=== PATIENT | male | born 1955 | race Caucasian/White ===

== ENCOUNTER 2019-03-21 10:03 | Emergency (ER) | payer BC ==
[~2019-03-21] VITALS: Ht 167.6 cm; Wt 74.8 kg
[~2019-03-21 10:03] MED LIST: DUTA0.5C PO; PARO40TA61 PO; TAMS0.4C97 PO
[2019-03-21] MEDS ORDERED: IV NORMAL SALINE 1,000ML 1,000 ML IV ONE ×2 (10:30→12:30)
--- NOTE | 2019-03-21 10:43 | PHYS DOC ---
Past History Past Medical History: Anxiety, High Cholesterol Additional Past Medical Histor: Prostate "issues" Past Surgical History: No Surgical History Smoking: Greater than 1 pack/day Alcohol Use: None Drug Use: None Adult General Chief Complaint Chief Complaint: MECHANICAL FALL HPI HPI 63-year-old male presents with report of fall from height off of ladder while trying to get on his roof. Patient reports the ladder just "slipped". Patient reports he tried to catch himself on the gutter and physical he fell landing on his right side. Patient reports considerable pain to right shoulder and right chest. Denies head trauma or loss of consciousness. Patient does report use of aspirin daily. [id number] picked up patient and brought by private vehicle. Denies laceration. Reports pain with deep inspiration. Reports deformity to right shoulder. Review of Systems Review of Systems Constitutional: Denies fever or chills Eyes: Denies redness or eye pain HENT: Denies nasal congestion or sore throat or epistaxis Respiratory: Denies cough; reports shortness of breath Cardiovascular: Reports right chest pain; denies palpitations GI: Denies abdominal pain, nausea, or vomiting : Denies dysuria or hematuria Musculoskeletal: Reports right shoulder pain Integument: Denies rash or skin lesions Neurologic: Denies headache, focal weakness or sensory changes Complete systems were reviewed and found to be within normal limits, except as documented in this note. Current Medications Current Medications Current Medications Medications (Trade) Dose Ordered Sig/Kris Start Time Stop Time Status Last Admin Dose Admin Fentanyl Citrate (Fentanyl 2ml Vial) 75 mcg 1X ONCE 03/21/19 10:30 03/21/19 10:31 DC 03/21/19 10:25 75 MCG Iohexol (Omnipaque 300 Mg/ml) 75 ml 1X ONCE 03/21/19 11:00 03/21/19 11:01 Sodium Chloride 1,000 ml @ 1,000 mls/hr 1X ONCE 03/21/19 10:30 03/21/19 11:29 03/21/19 10:30 1,000 MLS/HR Allergies Allergies Allergies Coded Allergies Type Severity Reaction Last Updated Verified No Known Drug Allergies 03/21/19 No Physical Exam Physical Exam Constitutional: Well developed, well nourished, uncomfortable, non-toxic appearance HENT: Normocephalic, atraumatic, oropharynx moist, TMs clear, nose normal, no Perez sign Eyes: PERRL, EOMI, conjunctiva normal, no discharge Neck: Normal range of motion, no midline tenderness, supple Cardiovascular: Heart rate normal, regular rhythm Lungs & Thorax: Bilateral breath sounds diminished on right, lateral chest wall discomfort with palpation Abdomen: Soft, no tenderness, pelvis stable and nontender Skin: Warm, dry, no erythema, no rash, left anterior tibial contusion Back: No midline tenderness, no CVA tenderness Extremities: Right shoulder deformity noted with decreased range of motion, distal sensation intact, right radial pulse +2 Neurologic: Alert and oriented X 3, normal motor function, normal sensory function, no focal deficits noted Psychologic: Affect normal, judgement normal Current Patient Data Vital Signs Vital Signs Date Time Temp Pulse Resp B/P (MAP) Pulse Ox O2 Delivery O2 Flow Rate FiO2 03/21/19 10:25 18 Room Air 03/21/19 10:20 97.2 62 96 EKG EKG [] Radiology/Procedures Radiology/Procedures PROCEDURE: SHOULDER 2+V RIGHT Examination: SHOULDER 2+V RIGHT History: Pain, fall Comparison/Correlation: None Findings: 2 view right shoulder x-ray examination was performed. Anterior dislocation of the right humeral head is evident. Acromioclavicular relationship is normal. No displaced fracture identified. Right apical pneumothorax is present. The lung apex is at the third posterior rib shadow level. Impression: Anterior dislocation of the right humeral head. Small right pneumothorax. Discussed with Dr. Avery of the emergency Department on 03/21/2019 at 11:08 AM. Electronically signed by: Ousmane Basurto MD (03/21/2019 11:09 AM) [facility] PROCEDURE: CHEST AP ONLY CHEST AP ONLY Clinical Indication: Pain, fall Comparison: None. Findings: Upright frontal view of the chest was obtained. The cardiomediastinal silhouette is normal. Lungs are clear. Pneumothorax is not well delineated on this exam. No pleural effusion is appreciated. Anterior dislocation of the right humeral head is noted. Elevation of right hemidiaphragm is present. Soft tissue gas involving the right lower lateral chest douglass evident extending to the upper abdomen. IMPRESSION: Right-sided pneumothorax is not well depicted on chest x-ray; although it is seen on shoulder x-ray exam performed. Soft tissue gas in the right lateral chest wall. Anterior dislocation of the right humeral head. Electronically signed by: Ousmane Basurto MD (03/21/2019 11:09 AM) [facility] PROCEDURE: CT CHEST ABD PELVIS W/CONTRAST Indication: Right lateral chest and flank pain after a fall from roof today Technique: Postcontrast CT imaging was performed of chest abdomen and pelvis, multiplanar reconstruction images submitted. No oral contrast was given. One or more of the following individualized dose reduction techniques were utilized for this examination: 1. Automated exposure control 2. Adjustment of the mA and/or kV according to patient size 3. Use of iterative reconstruction technique Comparison: None CHEST: Findings: There is moderate size right pneumothorax. There is gas in the right lateral chest wall. There is nondisplaced right lateral fifth rib fracture, slightly displaced right lateral sixth rib fracture which is fractured in 2 separate locations, and somewhat displaced right lateral seventh rib fracture. Thoracic vertebral body stature and AP alignment are maintained. There is multilevel thoracic and lumbar degenerative disc disease. There is mild dependent atelectasis right lower lobe. There is probable trace right hemothorax. There is a thin-walled air cyst of the right middle lobe. There is no pericardial fluid. Thoracic aortic caliber is within normal limits without dissection flap. There are some calcified mediastinal and left hilar nodes. There is right anterior shoulder dislocation. IMPRESSION: 1. There is moderate size right pneumothorax, also gas in the right chest wall. There is probable trace right hemothorax dependently. There are right rib fractures as stated. There is right anterior shoulder dislocation. Abdomen pelvis FINDINGS: Both kidneys enhance, no hydronephrosis. There are 4 hypodense foci of the left kidney, density characteristics of larger foci suggestive of cysts. There is 2.2 cm hypodense lesion of the right kidney with density measurements suggestive of cyst. There is no perinephric fluid collection on either side. There is no adrenal nodularity. Gallbladder is present without obvious intraluminal abnormality by CT. No focal abnormality is identified of the liver, spleen, pancreas. Accurate evaluation of bowel is limited without oral contrast. Bowel is not dilated. There is no free air or significant free fluid. Normal appendix is visualized. There is multilevel lumbar degenerative disc disease. Lumbar vertebral body stature is maintained. There is mild posterior subluxation of what is considered L3 relative L4 and L4 relative L5 and L5 relative S1. There is multilevel facet degenerative change. There is likely gas containing extrusion extending below the L2-3 intervertebral disc space in the left lateral recess. There is also likely gas containing extrusion in the right lateral recess below the L4-5 intervertebral disc space level. There is also likely small gas containing extrusion extending below the L1-2 intervertebral disc space in the left lateral recess. There is likely moderate to severe spinal stenosis at L3-4, variable other lateral recess stenosis. There is multilevel variable lumbar neural foramina compromise greatest bilaterally at L5-S1, on the left at L3-4, to a somewhat lesser degree at L4-5 bilaterally. Abdominal aortic caliber is within normal limits, minimal plaque. IMPRESSION: 1. No acute abnormality is identified of the abdomen or pelvis. 2. There are bilateral renal cysts. 3. There is multilevel thoracolumbar degenerative disc disease. There is some variable multilevel lumbar neural foramina compromise. There are likely some gas containing extrusions as stated. There is likely moderate to severe spinal stenosis L3-4. There is multilevel lumbar neural foramina compromise. Findings discussed with LOYD AVERY at 03/21/2019 11:37 AM. FOR INTERNAL CODING PURPOSES RESULT CODE: (C) Electronically signed by: Gavino Cristobal MD (03/21/2019 11:40 AM) [id number] PROCEDURE: CT HEAD AND CERVICAL SPINE WO STUDY: 1. CT head without contrast 2. CT cervical spine without contrast INDICATION: Fall off a roof. COMPARISON: None. TECHNIQUE: Axial CT imaging through the head and cervical spine without the use of intravenous contrast. Sagittal and coronal reformats were obtained. One or more of the following individualized dose reduction techniques were utilized for this examination: 1. Automated exposure control 2. Adjustment of the mA and/or kV according to patient size 3. Use of iterative reconstruction technique. FINDINGS: CT head: No acute intracranial hemorrhage. No mass effect, midline shift or hydrocephalus. Licona-white matter differentiation is maintained. Small rounded focus of low-attenuation subjacent to the left lentiform nucleus, image 11 series 2, most compatible with a dilated perivascular space given location. The calvarium is intact. No layering fluid seen within the visualized paranasal sinuses nor within the mastoid air cells or middle ears. CT cervical spine: No acute fracture. No traumatic malalignment. Severe discogenic arthrosis at C5-C6. Less pronounced discogenic arthrosis also present at C6-C7. Degenerative retrolisthesis of C5 on C6. Multilevel facet degeneration, uncovertebral joint hypertrophy and disc osteophyte complex formation. Collectively, degenerative changes most pronounced at C3-C4, C5-C6 and C6-C7. Severe bony neural foraminal encroachment on the right more so than left at C5-C6 and C6-C7. Severe bony encroachment on the left at C3-C4. Severe central canal stenosis at C5-C6 and C6-C7. No prevertebral hematoma. Bilateral carotid bulb atherosclerotic calcifications. IMPRESSION: CT head: 1. No acute intracranial abnormality. CT cervical spine: 1. No acute fracture or traumatic malalignment. 2. Advanced multifactorial degenerative changes, as detailed above, with resultant severe central canal stenosis at C5-C6 and C6-C7 as well as severe neural foraminal stenosis seen on the left at C3-C4 and bilaterally but right more so than left at C5-C6 and C6-C7. Electronically signed by: DON OLVERA MD (03/21/2019 11:19 AM) [id number] PROCEDURE: SHOULDER 2+V RIGHT & CXR AP Examination: 2 views of the right shoulder and frontal view of the chest HISTORY: History of postreduction, chest tube placement COMPARISON: Same day exam Findings/ impression: The humerus head now projects within the glenoid likely postreduction changes. However evaluation is somewhat limited due to positioning. Right-sided chest tube is identified. Small right pneumothorax is again identified. Mild bibasilar lung airspace opacities likely atelectasis or infiltrates. Electronically signed by: Thang Mayers MD (03/21/2019 1:32 PM) [id number] Course & Med Decision Making Course & Med Decision Making Pertinent Labs and Imaging studies reviewed. (See chart for details) [] Dragon Disclaimer Dragon Disclaimer This electronic medical record was generated, in whole or in part, using a voice recognition dictation system. Departure Departure: Impression: Primary Impression: Fall from ladder Additional Impressions: Anterior shoulder dislocation Pneumothorax Ribs, multiple fractures Disposition: 05 TRANSFER OTHER ([facility]) Condition: STABLE Referrals: MICKIE DARLING MD (PCP) Chest Tube Chest Tube : Chest Tube Location: anterior axillary line Size of [place] Tube (cm): 9 Chest Tube Procedure: sterile drapes applied, sterile dressing applied Anesthesia: 0.5% Sensorcaine (50:50mix with lidocaine 2% with epi) Volume Anesthetic (ccs): 20 [place] of Air [place]: Yes Number of Attempts: 1 Tube Drainage: see nurses notes Tube Sutured to Skin: Yes Post Procedure CXR?: Yes Progress Written consent obtained. Time out performed. Hand hygiene utilized. Wound cleaned with ChloraPrep. Anesthesia obtained via a 25-gauge hypodermic needle with total of (20) mL's of 50:50 mix of lidocaine 2% with epinephrine and 0.5% bupivacaine. Small marshallese chest tube placed without difficulty. Sutured to skin with Silk 0 x 2 sutures. Patient tolerated procedure well and without difficulty. Sterile dressing applied. Splinting Splinting : Location: Right shoulder Pre-Made Type: Shoulder immobilizer Pre-Proc Neuro Vasc Exam: normal Post-Proc Neuro Vasc Exam: normal, unchanged from pre-exam Joint Reduction Joint Reduction : Joint Reduction Site: shoulder (R) Conscious Sedation: Yes Reduction Attempts: 2 Pre-Procedure NV Exam: Yes Post-Procedure NV Exam: Yes Post Joint Reduction Film: joint reduced Progress Written consent obtained. Time out performed. Hand hygiene utilized. Monitors in placed including cardiac, pulse oximetry, and end tidal CO2. Supplemental O2 also in place via NC. Sedation performed with 100mcg of Fentanyl and 10mg of Etomidate. Patient with some fasciculations with etomidate. Decision to use Ketamine 75mg in addition. Fasciculations improved. Traction/countertraction utilized with subsequent improvement/relocation of right shoulder after manipulation. Shoulder immobilizer placed. Patient tolerated procedure well and without difficulty. Empiric antibiotic ointment applied prior to sterile dressing. MODERATE SEDATION ASSESSMENT RISKS/ALTERNATIVES Risks/Alternatives Risks and alternatives of this type of sedation and procedure discussed with: RISK/ALTERNATIVES DISCUSSED: Patient H & P ON CHART H & P H & P on chart and reviewed for co-morbid conditions and appropriate labs. H&P ON CHART: Yes STATUS PREG STATUS ASSESSED: N/A MEDS/ALLERGIES REVIEWED Meds/Allergies Reviewed Medications and Allergies including time and route of recently administered narcotics and sedatives. MEDS/ALLERGIES REVIEWED: Yes ASA RATING ASA RATING: II AIRWAY ASSESSMENT Airway Assessment Airway patency, oral function limitations, presence of caps, crowns, dentures, partials, and ability to extend neck assessed. AIRWAY ASSESSMENT: Yes MALLAMPATI SCORE MALLAMPATI SCORE: III PRE-SEDATION ASSESSMENT PRE-SEDATION PHYSICAL: Yes Critical Care Time Critical care time was 30 minutes which includes time at bedside, spent in discussion of patient's care with specialists and/or family members, with interpretation of laboratory and/or radiological studies and is exclusive of procedures. Problem Qualifiers Primary Impression: Fall from ladder Encounter type: initial encounter Qualified Codes: W11.XXXA - Fall on and from ladder, initial encounter Additional Impressions: Anterior shoulder dislocation Encounter type: initial encounter Laterality: right Qualified Codes: S43.014A - Anterior dislocation of right humerus, initial encounter Pneumothorax Pneumothorax type: traumatic Encounter type: initial encounter Qualified Codes: S27.0XXA - Traumatic pneumothorax, initial encounter Ribs, multiple fractures Encounter type: initial encounter Fracture type: closed Laterality: right Qualified Codes: S22.41XA - Multiple fractures of ribs, right side, initial encounter for closed fracture LOYD AVERY DO Mar 21, 2019 10:43
[2019-03-21] MEDS ORDERED: IOHEXOL 300 MG/ML 75 ML VIAL. IV ONE (11:00)
[2019-03-21 11:03] LABS: BASO % 1 % (0-3); EOS # 0.2 x10^3/uL (0.0-0.7); EOS % 2 % (0-3); HEMATOCRIT 46.2 % (39.0-53.0); HEMOGLOBIN 15.7 g/dL (13.0-17.5); LYMPH # 2.1 x10^3/uL (1.0-4.8); LYMPH % 25 % (24-48); MEAN CORPUSCULAR HEMOGLOBIN 33 pg (25-35); MEAN CORPUSCULAR HGB CONC 34 g/dL (31-37); MEAN CORPUSCULAR VOLUME 98 fL (79-100); MONO # 0.7 x10^3/uL (0.0-1.1); MONO % 8 % (0-9); NEUT # 5.4 x10^3uL (1.8-7.7); NEUT % 64 % (31-73); PLATELET COUNT 250 x10^3/uL (140-400); RED BLOOD COUNT 4.73 x10^6/uL (4.30-5.70); RED CELL DISTRIBUTION WIDTH 14.5 % (11.5-14.5); WHITE BLOOD COUNT 8.4 x10^3/uL (4.0-11.0)
--- NOTE | 2019-03-21 11:12 | RAD ---
Examination: SHOULDER 2+V RIGHT History: Pain, fall Comparison/Correlation: None Findings: 2 view right shoulder x-ray examination was performed. Anterior dislocation of the right humeral head is evident. Acromioclavicular relationship is normal. No displaced fracture identified. Right apical pneumothorax is present. The lung apex is at the third posterior rib shadow level. Impression: Anterior dislocation of the right humeral head. Small right pneumothorax. Discussed with Dr. Headr of the emergency Department on 03/21/2019 at 11:08 AM. Electronically signed by: Ousmane Basurto MD (03/21/2019 11:09 AM) [facility]
--- NOTE | 2019-03-21 11:12 | RAD ---
CHEST AP ONLY Clinical Indication: Pain, fall Comparison: None. Findings: Upright frontal view of the chest was obtained. The cardiomediastinal silhouette is normal. Lungs are clear. Pneumothorax is not well delineated on this exam. No pleural effusion is appreciated. Anterior dislocation of the right humeral head is noted. Elevation of right hemidiaphragm is present. Soft tissue gas involving the right lower lateral chest douglass evident extending to the upper abdomen. IMPRESSION: Right-sided pneumothorax is not well depicted on chest x-ray; although it is seen on shoulder x-ray exam performed. Soft tissue gas in the right lateral chest wall. Anterior dislocation of the right humeral head. Electronically signed by: Ousmane Basurto MD (03/21/2019 11:09 AM) [facility]
[2019-03-21 11:18] LABS: ALBUMIN 3.7 g/dL (3.4-5.0); CALCIUM 8.3 mg/dL (8.5-10.1); CREATININE 0.8 mg/dL (0.7-1.3); GFR 97.6; MAGNESIUM 1.9 mg/dL (1.8-2.4); POTASSIUM 3.7 mmol/L (3.5-5.1); TOTAL BILIRUBIN 0.4 mg/dL (0.2-1.0); TOTAL PROTEIN 7.3 g/dL (6.4-8.2)
--- NOTE | 2019-03-21 11:22 | RAD ---
STUDY: 1. CT head without contrast 2. CT cervical spine without contrast INDICATION: Fall off a roof. COMPARISON: None. TECHNIQUE: Axial CT imaging through the head and cervical spine without the use of intravenous contrast. Sagittal and coronal reformats were obtained. One or more of the following individualized dose reduction techniques were utilized for this examination: 1. Automated exposure control 2. Adjustment of the mA and/or kV according to patient size 3. Use of iterative reconstruction technique. FINDINGS: CT head: No acute intracranial hemorrhage. No mass effect, midline shift or hydrocephalus. Licona-white matter differentiation is maintained. Small rounded focus of low-attenuation subjacent to the left lentiform nucleus, image 11 series 2, most compatible with a dilated perivascular space given location. The calvarium is intact. No layering fluid seen within the visualized paranasal sinuses nor within the mastoid air cells or middle ears. CT cervical spine: No acute fracture. No traumatic malalignment. Severe discogenic arthrosis at C5-C6. Less pronounced discogenic arthrosis also present at C6-C7. Degenerative retrolisthesis of C5 on C6. Multilevel facet degeneration, uncovertebral joint hypertrophy and disc osteophyte complex formation. Collectively, degenerative changes most pronounced at C3-C4, C5-C6 and C6-C7. Severe bony neural foraminal encroachment on the right more so than left at C5-C6 and C6-C7. Severe bony encroachment on the left at C3-C4. Severe central canal stenosis at C5-C6 and C6-C7. No prevertebral hematoma. Bilateral carotid bulb atherosclerotic calcifications. IMPRESSION: CT head: 1. No acute intracranial abnormality. CT cervical spine: 1. No acute fracture or traumatic malalignment. 2. Advanced multifactorial degenerative changes, as detailed above, with resultant severe central canal stenosis at C5-C6 and C6-C7 as well as severe neural foraminal stenosis seen on the left at C3-C4 and bilaterally but right more so than left at C5-C6 and C6-C7. Electronically signed by: DON OLVERA MD (03/21/2019 11:19 AM) [email or web address]
--- NOTE | 2019-03-21 11:43 | RAD ---
CT CHEST ABD PELVIS W/CONTRAST Indication: Right lateral chest and flank pain after a fall from roof today Technique: Postcontrast CT imaging was performed of chest abdomen and pelvis, multiplanar reconstruction images submitted. No oral contrast was given. One or more of the following individualized dose reduction techniques were utilized for this examination: 1. Automated exposure control 2. Adjustment of the mA and/or kV according to patient size 3. Use of iterative reconstruction technique Comparison: None CHEST: Findings: There is moderate size right pneumothorax. There is gas in the right lateral chest wall. There is nondisplaced right lateral fifth rib fracture, slightly displaced right lateral sixth rib fracture which is fractured in 2 separate locations, and somewhat displaced right lateral seventh rib fracture. Thoracic vertebral body stature and AP alignment are maintained. There is multilevel thoracic and lumbar degenerative disc disease. There is mild dependent atelectasis right lower lobe. There is probable trace right hemothorax. There is a thin-walled air cyst of the right middle lobe. There is no pericardial fluid. Thoracic aortic caliber is within normal limits without dissection flap. There are some calcified mediastinal and left hilar nodes. There is right anterior shoulder dislocation. IMPRESSION: 1. There is moderate size right pneumothorax, also gas in the right chest wall. There is probable trace right hemothorax dependently. There are right rib fractures as stated. There is right anterior shoulder dislocation. Abdomen pelvis FINDINGS: Both kidneys enhance, no hydronephrosis. There are 4 hypodense foci of the left kidney, density characteristics of larger foci suggestive of cysts. There is 2.2 cm hypodense lesion of the right kidney with density measurements suggestive of cyst. There is no perinephric fluid collection on either side. There is no adrenal nodularity. Gallbladder is present without obvious intraluminal abnormality by CT. No focal abnormality is identified of the liver, spleen, pancreas. Accurate evaluation of bowel is limited without oral contrast. Bowel is not dilated. There is no free air or significant free fluid. Normal appendix is visualized. There is multilevel lumbar degenerative disc disease. Lumbar vertebral body stature is maintained. There is mild posterior subluxation of what is considered L3 relative L4 and L4 relative L5 and L5 relative S1. There is multilevel facet degenerative change. There is likely gas containing extrusion extending below the L2-3 intervertebral disc space in the left lateral recess. There is also likely gas containing extrusion in the right lateral recess below the L4-5 intervertebral disc space level. There is also likely small gas containing extrusion extending below the L1-2 intervertebral disc space in the left lateral recess. There is likely moderate to severe spinal stenosis at L3-4, variable other lateral recess stenosis. There is multilevel variable lumbar neural foramina compromise greatest bilaterally at L5-S1, on the left at L3-4, to a somewhat lesser degree at L4-5 bilaterally. Abdominal aortic caliber is within normal limits, minimal plaque. IMPRESSION: 1. No acute abnormality is identified of the abdomen or pelvis. 2. There are bilateral renal cysts. 3. There is multilevel thoracolumbar degenerative disc disease. There is some variable multilevel lumbar neural foramina compromise. There are likely some gas containing extrusions as stated. There is likely moderate to severe spinal stenosis L3-4. There is multilevel lumbar neural foramina compromise. Findings discussed with LOYD AVERY at 03/21/2019 11:37 AM. FOR INTERNAL CODING PURPOSES RESULT CODE: (C) Electronically signed by: Gavino Cristobal MD (03/21/2019 11:40 AM) [facility]
[2019-03-21] MEDS ORDERED: LIDOCAINE 2%/EPI 1:100,000 20 ML VIAL. IJ ONE (11:55)
[2019-03-21] MEDS ORDERED: ETOMIDATE 40 MG/20 ML VIAL. IV ONE (11:55)
[2019-03-21] MEDS ORDERED: BUPIVACAINE MPF 0.5% 30 ML VIAL. SQ ONE (11:55)
[2019-03-21] MEDS ORDERED: KETAMINE HCL 500 MG/10 ML VIAL. ONE (12:32)
--- NOTE | 2019-03-21 13:34 | RAD ---
Examination: 2 views of the right shoulder and frontal view of the chest HISTORY: History of postreduction, chest tube placement COMPARISON: Same day exam Findings/ impression: The humerus head now projects within the glenoid likely postreduction changes. However evaluation is somewhat limited due to positioning. Right-sided chest tube is identified. Small right pneumothorax is again identified. Mild bibasilar lung airspace opacities likely atelectasis or infiltrates. Electronically signed by: Thang Mayers MD (03/21/2019 1:32 PM) [id number]
[2019-03-21] MEDS ORDERED: KETAMINE HCL 500 MG/10 ML VIAL. IV ONE (14:00)
[2019-03-21] MEDS ORDERED: KETOROLAC 15 MG/ML VIAL. ONE (14:30)
[2019-03-21] MEDS ORDERED: KETOROLAC 15 MG/ML VIAL. IVP ONE (14:30)
[2019-03-21 15:09] VITALS: BP 123/74
== END 2019-03-21 15:40 | disposition short-term general hospital (02) ==
LOC: ER 10:03
DX: S43.004A Unspecified dislocation of right shoulder joint, initial encounter (principal); S22.41XA Multiple fractures of ribs, right side, initial encounter for closed fracture; J93.9 Pneumothorax, unspecified; E78.00 Pure hypercholesterolemia, unspecified; F41.9 Anxiety disorder, unspecified; F17.200 Nicotine dependence, unspecified, uncomplicated; W11.XXXA Fall on and from ladder, initial encounter; Y93.89 Activity, other specified; Y92.89 Other specified places as the place of occurrence of the external cause; Y99.8 Other external cause status
CPT/HCPCS: 23650; 32551; 36415; 70450; 71045; 71260; 72125; 73030; 74177; 80053; 83690; 83735; 85025; 85610; 85730; 96374; 96375; 99291; J1885; J3010; J3490; Q9967; 99151; J7030